=== PATIENT | male | born 1990 | race Caucasian/White ===

== ENCOUNTER 2021-04-30 10:30 | Outpatient (RCR) | payer OTHER, SELFPAY ==
--- NOTE | 2021-04-17 13:33 | HP.PTEVAL ---
Patient's Visit Information UMANG MERINO is a 31 year old M referred to Physical Therapy by MOHSEN PARIS with a diagnosis of TBI loss of cosciousness. Date of Evaluation: 04/17/21 Physical Therapist: Cheng Desai, SIVAKUMART, OCS, CSCS - Visit Plan Frequency: 2x /Week Duration: 2-4 Weeks Plan: 2x/week for 2-4 weeks to progress physicl activity level back toward spinning class/jogging if able. Strength and ex that involve head mvoements to monitor tolerance. - Subjective February 26 TBI.Lives in [place] and went to their facility and had PT, In ICU for 7 days and then to [facility] rehab center. Lives with parents now as needed help driving. Was doing outpatient therapy at [facility] in [place]. But could not get into PT up there. Had restrictions in rehab with jogging. Wants to be released to jogging. Used to play soccer and basketball. Would like to spin. Plan is to go back to [place], cannot drive yet. Has neurologist down in [place]. Sees them on 05/07 and 05/29. Has not seen them since left [facility] on 03/16. Was not allowed to do heavy lifting at the time. Needs release to drive from [place]. Will ahve driving simulator set up soon. Sleep is OK. No symtpoms. No HERNANDEZ, no dizzyness. 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 Doing speech cognitive therapy in [place] and due to be released soon. No pain. No numbness or tingling. No UE or LE symptoms. 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 May go back 06/29 with doctors. Will have to be on floor in plant and at desk. Basics ADLs all done I. Hobbies include spinning. Golfed without issues this weekend. Walking is his main activity a mile or two, stroll. - Objective 99 so2 sat adn 47 HR. 134/78 BP t rest. Balance is good adn walking and trasntiions are normal and I. Steps are reciprocal without rail and two at a time. LE strength 5/5 without myotomal problems. 2/3 patella and achilles reflex. AROM WNL and easy UE adn LE. coordination to reciprocal toe adn heel tap is normal. Pt answers questions appropriately and is oriented to person, place and date. LB and neck aROM WFL. VOR without and problems. VOR walking easily. No position changes cause any symptoms. 152 HR with ellitpical today at 5/10 RPE. 178 at end level 15 for last two minute s of 10 and 6/10 RPE. Assault bike intervals 4 rpm 30 to 60-70 rpm 30 sec 5 minutes today. 190 HR ater 99% so2 sat. - Goals Goal 1:: Back to spin class safely. Goal Time Frame: 6-8 Weeks Goal 2:: sfely return to activity Goal Time Frame: 6-8 Weeks - Rehabilitation Potential Physical Therapy Diagnosis: TBI, low activity level. Rehabilitation Potential: Good - Anticipated Interventions Patient/Client Instruction: Educate patient on: Condition, Plan of Care For the Purpose of:: To improve muscle performance and motor function, To increase tolerance to activity/condition/position Therapeutic Exercise to Include: Strength training, Endurance training For the Purpose of:: To improve muscle performance and motor function, To increase tolerance to activity/condition/position Thank you for the opportunity to evaluate your patient. For Medicare and Medicare HMO plans, please review the plan of care and approve it. It will need to be FAXED BACK to us at [phone] for Medicare purposes. For Medicare only, by signing this I certify the plan of care. Please let me know if there are questions or concerns regarding this plan of care. Physician Signature: Date:
--- NOTE | 2021-04-30 11:04 | HP.PTDCSUM_ITS ---
It has been my pleasure to treat UMANG MERINO referred by MOHSEN PARIS, with the diagnosis of TBI loss of cosciousness for a total of 4 visit(s). Discharge Date: 04/30/21 Please see the following information for a summary of their discharge status. Subjective: No symptpms except arm fatigue adn soreness from the workout, otherwise has been good. Will go back to [place] with mom on 6 days and see neuro in 7. Objective/Function: 150+ HR on elliptical today.178-190 with interval training on spinner adn body weight on high intenisty portion. No symptoms displayed throughout time here, pt was tired but felt good with ex. Goal 1:: Back to spin class safely. Goal Progress: Progressing Goal 2:: sfely return to activity Goal Progress: Progressing Plan: Recommended no plyo movements or activity that cause jarring before f/u with neuro but Ok to get back to CV workout within parmaeters performed in PT and without symptoms whcih he never had in PT. Emphasize elliptical, bike, TM jog until neuro visit next week. Discharge Comments: Pt doing well with CV ex in pT and working toward goal of returning to spinning. Will see doctor next week as he has progressed well through therapy wihtou any symptoms or signs. If there are questions or concerns regarding this patient's physical therapy, please feel free to call me at [phone]. Thank you for the referral of this patient. Sincerely, Cheng Desai, DPT, OCS, CSCS Balance/Gait/Functional tests - Balance/Special Test Scores Lower Extremity Functional Score: 67
== END 2021-04-30 15:40 | disposition home or self-care (01) ==
LOC: PT 10:30
DX: S06.9X9D Unspecified intracranial injury with loss of consciousness of unspecified duration, subsequent encounter (principal)
CPT/HCPCS: 97110; 97161